=== PATIENT | female | born 1970 | race Caucasian/White ===

== ENCOUNTER 2016-09-29 08:05 | Day surgery (SDC) | END 2016-09-29 10:52 | disposition home or self-care (01) | DX: K29.50 Unspecified chronic gastritis without bleeding (principal); K44.9 Diaphragmatic hernia without obstruction or gangrene; K22.10 Ulcer of esophagus without bleeding | CPT/HCPCS: 43239; 84703; 88305; 88312; J2250; J3010; Z7610 ==